=== PATIENT | female | born 1935 | race Caucasian/White ===

== ENCOUNTER 2018-04-15 11:09 | Inpatient (IN) ==
--- NOTE | 2018-04-15 11:45 | Diag Imaging Result Doc PS360 ---
XRAY PELVIS W/HIP 2-3VW RT - 04/15/2018 INDICATION: fall TECHNIQUE: Three views COMPARISON: 08/17/2018 FINDINGS: There is a nondisplaced right femoral neck fracture. The pelvis appears intact. No dislocation. IMPRESSION: Nondisplaced right femoral neck fracture. Electronically signed by Josue Everett 04/15/2018 11:42 AM
[2018-04-15 12:23] LABS: BASO# 0.07 X1000 (0.0-0.2); BASO% 0.1 % (0.0-0.8); EOS# 0.03 X1000 (0.0-0.7); EOS% 0.1 % (0.0-10.0); HEMOGLOBIN 13.1 g/dL (12.0-16.0); IMM GRAN# 0.47 X1000 (0.0-0.04); LYMPH# 1.92 X1000 (1.2-3.4); LYMPH% 4.1 % (20.5-51.1); MCH 29.8 PG (27-31); MCV 93.2 FL (81-99); MONO# 4.56 X1000 (0.11-0.59); MONO% 9.7 % (1.7-9.3); MPV 10.9 FL (7.4-10.4); NEUT# 39.77 X1000 (1.4-6.5); PLT 303 X1000 (130-400); RDW 15.1 % (11.5-14.5); WBC 46.82 X1000 (4.8-10.8)
--- NOTE | 2018-04-15 12:25 | Diag Imaging Result Doc PS360 ---
CHEST-1 VIEW - 04/15/2018 INDICATION: pre-op COMPARISON: 04/21/2017 FINDINGS: There are couple of new nodular densities in the right lung base. These measure up to 8 mm. Otherwise, no infiltrates. Heart size is top normal. No pneumothorax or pleural effusion. IMPRESSION: New indeterminate pulmonary nodules in the right lung base. Follow-up recommended. Electronically signed by Josue Everett 04/15/2018 12:23 PM
[2018-04-15 12:27] LABS: INR 0.96; PROTIME 13.6 Seconds (11.0-16.0); PTT 29.6 Seconds (22.3-41.8)
[2018-04-15 12:36] LABS: AGAP 9; ALB/GLOB RATIO 1.5; ALBUMIN 3.5 g/dL (3.5-5.0); ALKALINE PHOSPHATASE 78 U/L (32-104); BUN 15 mg/dL (8-22); CALCIUM 8.3 mg/dL (8.8-10.2); CHLORIDE 101 mmol/L (98-107); COSMO 277; CREATININE 0.6 mg/dL (0.5-0.9); ESTIMATED GFR > 60; GLUCOSE 142 mg/dL (70-104); GOT 31 U/L (10-30); GPT 23 U/L (10-36); POTASSIUM 3.8 mmol/L (3.5-5.1); SODIUM 137 mmol/L (136-145); TCO2 27 mmol/L (25-35); TOTAL BILIRUBIN 1.03 mg/dL (0.20-1.00); TOTAL PROTEIN 5.9 g/dL (6.3-8.3)
[2018-04-15] MEDS ORDERED: ZOFRAN IV ONE (12:37)
[2018-04-15] MEDS ORDERED: DILAUDID IV ONE (12:37)
[2018-04-15 12:40] LABS: BANDS 1 % (0-1); HYPOCHROM 1+; LYMPHS 2 % (21-51); MONO 7 % (1-9); SEGS 87 % (42-75)
[2018-04-15] MEDS ORDERED: ZOFRAN IV PRN (13:38)
[2018-04-15] MEDS ORDERED: DILAUDID IV PRN (13:40)
--- NOTE | 2018-04-15 13:43 | PROVIDER DOCUMENTATION ---
This chart was entered by Henrietta Crawford Scribe, acting as scribe for Aubrey Anderson MD. HPI-Musculoskeletal Pain/Inj - GENERAL Chief Complaint: Hip Pain Stated Complaint: fall Time Seen by Provider: 04/15/18 11:18 Source: patient, EMS - HX OF PRESENT ILLNESS-MUSKULOSKELTAL Nature of Presenting Problem: 83 y/o female presents to ED with R hip pain onset just prior to arrival. Pt reports she feel on her R hip and hit her head, but did not lose consciousness. Pt states she is also experiencing back pain and nausea. Pt is alert and oriented. Quality of Pain: reports: aching, throbbing Severity in ED: mild Onset/Duration: just prior to arrival Timing: still present Modifying Factors: worse with: movement, palpation Any recent injury?: Yes (fall) Locality of Occurance: Home Similar Symptoms Previously?: No Recently seen or treated by another doctor?: No - FALL INJURY Location of Pain/Injury: reports: lower extremity Pain Radiation: reports: no radiation Reason for Fall: reports: unknown Symptoms prior to fall:: reports: none Loss of Consciousness: no loss of consciousness Injury Associated Symptoms: reports: joint pain (R hip) - HIP/PELVIS PAIN/INJURY Hip Pain Location: reports: hip (R) Pain Radiation: reports: no radiation Context / Method of Injury: reports: fall Associated Symptoms: reports: denies symptoms - LOWER EXTREMITY PAIN/INJURY Lower Extremities Pain: hip: right Context / Method of Injury: reports: fell Associated Symptoms: reports: denies symptoms Review of Systems - Adult - REVIEW OF SYSTEMS - ADULT Constitutional: denies: chills, fever Eyes: reports: no symptoms reported Ears, Nose, Mouth & Throat: reports: no symptoms reported Cardiovascular: denies: chest pain, palpitations Respiratory: denies: cough, shortness of breath Gastrointestinal: reports: nausea. denies: abdominal pain, diarrhea, vomiting Genitourinary: reports: no symptoms reported Musculoskeletal: reports: back pain, joint pain (R hip) Integumentary: reports: no symptoms reported Neurological: denies: dizziness/vertigo, seizure Psychiatric: reports: no symptoms reported Endocrine: reports: no symptoms reported Hematologic/Lymphatic: reports: no symptoms reported Allergic/Immunologic: reports: no symptoms reported All Other Systems: Reviewed and Negative Past History - Adult - PAST MEDICAL HISTORY-ADULT Review of Records: reports: Old Records Reviewed, Nursing Assessment Review, Medications Reviewed Major Childhood Illnesses: reports: denies history Cardiovascular: reports: HTN Respiratory: reports: COPD, cancer Gastrointestinal: reports: GERD, other (hernia) Obstetrical/Gynecological: reports: denies history Genitourinary: reports: denies history, kidney stones Musculoskeletal: reports: other (spinal stenosis; tumor R rib cage) Neurological: reports: denies history, other (scoliosis) Psychiatric: reports: depression Endocrine/Immune: reports: denies history Other Conditions: reports: denies history, cataract/glaucoma - PRIOR SURGERIES/PROCEDURES Surgical/Procedure History: reports: appendectomy, cholecystectomy, BTL, hernia repair, orthopedic (extremity) (trigger thumb), other (cataract removal; ovaries ) - PRIOR HOSPITALIZATIONS Prior Hospitalizations: reports: for other non-related - IMMUNIZATION STATUS Childhood Immunizations: See Nurse Assessment Flu Vaccine: See Nurse Assessment - FAMILY HISTORY Family History: reviewed, not pertinent - SOCIAL HISTORY Smoking: non-smoker Substance Use: none/never Alcohol Use Frequency: never Living Situation: family Physical Exam-Injury Related - Physical Exam-Injury Related Initial Vital Signs Reviewed: Yes General Appearance: appears well, alert, no apparent distress Eyes: PERRL/EOMI, pink conjunctivae Head, Ears, Nose, Mouth & Throat: normocephalic/atraumatic, moist mucous membranes, normal ENT inspection Neck: non-tender, full range of motion Respiratory: chest non-tender, lungs clear, normal breath sounds Cardiovascular: normal peripheral pulses, regular rate, rhythm Abdominal Exam: normal bowel sounds, non tender, soft, hernia Back Exam: normal inspection, no CVA tenderness Extremity: normal range of motion, tenderness (R hip), other (R hip pain with movement). negative: normal gait (states cannot walk) Integumentary: normal color, warm/dry Neurologic: grossly normal Psych/Mental Status: normal mood/affect, normal thought content, normal thought process Progress - PLAN OF CARE/RESULTS Progress/Plan/Lab Results: Vital Signs - 8 hr 04/15/18 11:13 04/15/18 12:51 04/15/18 12:53 Temperature 97.5 F L Pulse Rate 101 H 84 Respiratory Rate 18 19 Blood Pressure 108/88 106/73 O2 Sat by Pulse Oximetry 99 95 97 04/15/18 13:00 04/15/18 13:01 04/15/18 13:10 Temperature Pulse Rate 87 85 84 Respiratory Rate 20 24 20 Blood Pressure 112/68 O2 Sat by Pulse Oximetry 98 97 98 04/15/18 13:20 04/15/18 13:30 Temperature Pulse Rate 89 88 Respiratory Rate 18 12 Blood Pressure O2 Sat by Pulse Oximetry 99 97 Laboratory Results - last 24 hr 04/15/18 04/15/18 04/15/18 12:00 12:00 12:00 WBC 46.82 H RBC 4.40 Hgb 13.1 Hct 41.0 MCV 93.2 MCH 29.8 MCHC 32.0 L RDW Std Deviation 15.1 H Plt Count 303 MPV 10.9 H Immature Gran % (Auto) 1.0 H Neut % (Auto) 85.0 H Lymph % (Auto) 4.1 L Ray % (Auto) 9.7 H Eos % (Auto) 0.1 Baso % (Auto) 0.1 Immature Gran # (Auto) 0.47 H Neut # (Auto) 39.77 H Lymph # (Auto) 1.92 Ray # (Auto) 4.56 H Eos # (Auto) 0.03 Baso # (Auto) 0.07 Segmented Neutrophils 87 H Band Neutrophils 1 Lymphocytes 2 L Monocytes 7 Pathologist Review Atypical Lymphocytes 3.0 Hypochromia 1+ PT 13.6 INR 0.96 PTT (Actin FS) 29.6 Sodium 137 Potassium 3.8 Chloride 101 Carbon Dioxide 27 Anion Gap 9 BUN 15 Creatinine 0.6 Estimated GFR/1.73 m2 > 60 BUN/Creatinine Ratio 25 Glucose 142 H Calculated Osmolality 277 Calcium 8.3 L Total Bilirubin 1.03 H AST 31 H ALT 23 Alkaline Phosphatase 78 Total Protein 5.9 L Albumin 3.5 Globulin 2.4 Albumin/Globulin Ratio 1.5 Orders Category Date Time Status Griffin Cath Insertion ORDERED Care 04/15/18 13:27 Active NPO Diet 04/15/18 13:37 Active CHEST-1 VIEW [RAD] Stat Exams 04/15/18 12:00 Completed XRAY PELVIS W/HIP 2-3VW RT [RAD] Stat Exams 04/15/18 11:19 Completed BLOOD CULTURE [BLDCUL] Stat Lab 04/15/18 13:22 Ordered CBC WITH DIFF [HEME] Stat Lab 04/15/18 12:00 Completed COMPREHENSIVE METABOLIC PANEL [CHEM] Stat Lab 04/15/18 12:00 Completed LACTATE, PLASMA [CHEM] Stat Lab 04/15/18 13:22 Ordered PROTIME WITH INR [COAG] Stat Lab 04/15/18 12:00 Completed PTT [COAG] Stat Lab 04/15/18 12:00 Completed URINALYSIS W/POSS RFLX CULT [URINALYSIS] Stat Lab 04/15/18 13:22 Ordered 0.9% Sodium Chloride Inj [Ns] 1,000 ml Med 04/15/18 13:45 Ordered IV 75 mls/hr Hydromorphone [Dilaudid] Med 04/15/18 12:37 Discontinued 1 mg IV NOW ONE Hydromorphone [Dilaudid] Med 04/15/18 13:40 Ordered 1 mg IV Q3H PRN PRN Ondansetron [Zofran] Med 04/15/18 12:37 Discontinued 4 mg IV NOW ONE Ondansetron [Zofran] Med 04/15/18 13:38 Ordered 4 mg IV Q4H PRN PRN Oxygen Device Stat Oth 04/15/18 11:25 Completed EKG [EKG] Stat Ther 04/15/18 12:00 Ordered Result Diagrams: 04/15/18 12:00 04/15/18 12:00 - REASSESSMENT Reassessment #1 Time Reassessed: 12:35 Status: unchanged (pt stable. appears comfortable at rest, but asking for analgesic. notable wbc ~ 47k, sugg'x leukemoid rxn/myelodysplasia/CML etc. empiric lactate and cultures ordered.) - EKG 1 Time of EKG reading by physician:: 13:15 EKG Read and Signed by:: Aubrey Anderson EKG Interpretation (*Must complete 3 of following elements*): Normal Rate: 83 Rhythm: NSR [place]: normal QRS: normal [place] Interval: normal ST Wave: normal - XRAY 1 XRAY: Right XRAY Study: Pelvis, Hip Impression: Abnormal (FINDINGS: There is a nondisplaced right femoral neck fracture. The pelvis appears intact. No dislocation. IMPRESSION: Nondisplaced right femoral neck fracture. Electronically signed by Josue Everett 04/15/2018 11:42 AM) 2 XRAY Study: Chest Impression: Abnormal (FINDINGS: There are couple of new nodular densities in the right lung base. These measure up to 8 mm. Otherwise, no infiltrates. Heart size is top normal. No pneumothorax or pleural effusion. IMPRESSION: New indeterminate pulmonary nodules in the right lung base. Follow-up recommended. Electronically signed by Josue Everett 04/15/2018 12:23 PM) - CONSULTS/PCP/HOSPITALIST Notification #1 *Consult/PCP/Hospitalist*: Dr. Castañeda Time Discussed: 12:12 Reason/Comments: Nondisplaced right femoral neck fracture. Consult Disposition: Admit (to hospitalist and he will see) #2 Consult: Dr. Lyons for Dr. Mack Time Discussed: 12:17 Reason/Comments: Nondisplaced right femoral neck fracture. Consult Disposition: other (Dr. Lyons states Dr. Mack is taking his own patients this weekend, so he will discuss with Dr. Mack and let us know plan.) Departure - Departure Date of Disposition Decision: 04/15/18 Time of Disposition Decision: 11:52 DIAGNOSIS: Closed right hip fracture Qualifiers: Encounter type: initial encounter Qualified Code(s): S72.001A - Fracture of unspecified part of neck of right femur, initial encounter for closed fracture Disposition: ADMITTED INPATIENT 09 Certified Medical Emergency: Emergent Condition: Stable Additional Freetext Instructions: ED Follow Up Instructions: You have been treated by a care provider in the Emergency Department. These instructions are being provided to you so you can have an understanding of how to care for yourself upon discharge. Upon discharge from the Emergency Department, you are responsible for making arrangements for follow-up care by a physician of your choice. Take all prescribed medications as directed. Return to the Emergency Department immediately for any new or worsening symptoms. You may call the Physician Referral phone number at [phone] to obtain a list of Physicians who are taking new patients. Referrals and Follow-Ups: Jacob Mack Jr, MD [Primary Care Provider] - Discharge Education: Hip Fracture - Critical Care Note This patient required my direct & personal management of CC.: No Attestation - Physician/ SCOTTY Attestation Patient care was provided by Advanced Practice Provider:: No The physician spent face to face time with patient:: Yes Advanced Practice Provider documentation review:: Supervising physician onsite and consulted in the evaluation and care of this patient. The physician did have a face to face encounter with the patient. This chart was documented by the indicated scribe, (Henrietta Crawford, Damián) and accurately reflects the services I performed and decisions made by me, Aubrey Anderson MD, as attested by the provider's signature.
[2018-04-15] MEDS ORDERED: NS 1,000 ML IV SCH (13:45)
[2018-04-15 13:54] LABS: URINE SOURCE CATH
[2018-04-15 14:02] LABS: BILIRUBIN URINE NEGATIVE (NEGATIVE); BLOOD URINE NEGATIVE (NEGATIVE); COLOR YELLOW; GLUCOSE URINE TRACE mg/dL (NEGATIVE); KETONE URINE TRACE mg/dL (NEGATIVE); LEUKOCYTES URINE SMALL (NEGATIVE); NITRITE URINE NEGATIVE (NEGATIVE); PH URINE 6.5; PROTEIN URINE 100 mg/dL (NEGATIVE); SP GRAVITY URINE 1.028; TURBIDITY URINE HAZY (CLEAR); UR EPITHELIAL CELLS >10 /HPF (<10); URINE BACTERIA NEGATIVE /HPF; URINE RBC <10 /HPF (<10); URINE WBC <10 /HPF (<10); UROBILINOGEN URINE 4 mg/dL (NORMAL)
[2018-04-15] MEDS ORDERED: ROCEPHIN 1 GM in NS 50 ML IV SCH (17:30)
[2018-04-15] MEDS: LEVAQUIN 500 MG/D5W 500 MG/100 ML IVPB IV SCH (18:59)
[2018-04-15] MEDS: ZOFRAN IV PRN ×2 (18:59→22:14)
[2018-04-15] MEDS: DILAUDID IV PRN ×2 (18:59→22:14)
[2018-04-15] MEDS: NS 1,000 ML IV SCH (19:02)
[2018-04-16] MEDS: DILAUDID IV PRN ×4 (01:05→21:52)
--- NOTE | 2018-04-16 02:11 | HISTORY AND PHYSICAL ---
CHIEF COMPLAINT: Fall and injury to right hip. PRESENT ILLNESS: This is one of several [facility] admissions for this 83-year-old white female, a patient of Dr. Jacob Mack, who fell this morning and experienced right hip pain. She was brought by ambulance to the emergency room. She was found to have a nondisplaced right hip fracture on x-ray. There is no history of previous fractures. She was supposed to have a bone density test in June, and does have osteopenia. She had no dizziness, and did not stumble, but just fell. She had no hip pain prior to the fall. She is admitted for further evaluation and repair of her hip fracture. Orthopedic consultation was obtained with Dr. Castañeda. PAST MEDICAL HISTORY: Significant for lung cancer and COPD. She uses oxygen at home. Chest x- ray in the emergency room reveals some new nodular densities, 8 mm in the right lower lung, but no infiltrate or effusion. She has had no recent surgery. PRESENT MEDICATIONS: B12 1000 mcg 1 daily, docusate 100 mg daily, duloxetine 60 mg daily, folic acid 1 mg daily, furosemide 20 mg daily, [place] 5/325 q.6 hours p.r.n. pain, lorazepam 0.5 mg t.i.d. p.r.n., and omeprazole 20 mg daily. She also takes Evista 60 mg daily and Zofran 4 mg q.6 hours p.r.n. nausea. ALLERGIES: Several, including doxycycline, oxytetracycline, and penicillin. LABORATORY STUDIES: White blood count was elevated at 46,800. Hemoglobin was 13.1, hematocrit 41.0, with 85% neutrophils and 0.47 immature granulocytes. Plasma lactate was 1.5. Bilirubin was 1.03, and AST 31. Total protein was low at 5.9. SOCIAL HISTORY: Previous smoker, but no alcohol usage. FAMILY HISTORY: Unremarkable. PHYSICAL EXAMINATION: VITAL SIGNS: Temperature 98.4 degrees, heart rate 85, respirations 24, blood pressure 112/68. Oxygen saturation on nasal oxygen 97%. GENERAL: Patient is a well-developed, well-nourished, thin, elderly white female, with moderate right hip pain to palpation and with motion. Pupils equal, round, and reactive to light. Pharynx benign. NECK: Supple, with no mass or lymphadenopathy. HEART: Regular in rate and rhythm, with no murmur, rub, or gallop. LUNGS: Clear, with no rales or rhonchi. ABDOMEN: Soft, with no mass, tenderness, or organomegaly. EXTREMITIES: No cyanosis, clubbing, or edema. RECTAL/GENITALIA: Deferred. IMPRESSION: Nondisplaced right femoral neck fracture, chronic obstructive pulmonary disease, history of lung cancer, new small nodular densities in the right lower lung field, leukocytosis. PLAN: Admit for evaluation and hip repair. cc: Kelechi Lyons MD
[2018-04-16] MEDS: ZOFRAN IV PRN ×3 (02:51→10:19)
--- NOTE | 2018-04-16 05:14 | CONSULTATION ---
DATE OF CONSULTATION: 04/15/2018 CHIEF COMPLAINT: Right hip pain. HISTORY OF PRESENT ILLNESS: Ms Mario, an 83-year-old female, who presented to the emergency department today with complaints of a fall. She was diagnosed with a right hip fracture and admitted per the medicine service. Most of her pain is in the right hip. She says she went to answer the phone and sort of got tripped up. She denies any loss of consciousness. She denies any pain anywhere else. PAST MEDICAL HISTORY: COPD, an abscess in her left thigh. She has a history of lung cancer. She has hypertension. PAST SURGICAL HISTORY: Left thigh I and D per Dr. Arvizu. MEDICATIONS: Per the medical record. ALLERGIES: Pretty extensive. Bentyl, Celexa, codeine sulfate, doxycycline, erythromycin, IV dye, lidocaine, macrolide antibiotics, Novocain, penicillin, sulfa, triamterene, hydrochlorothiazide, cephalosporins. FAMILY HISTORY: Unremarkable. SOCIAL HISTORY: She denies any smoking or alcohol use. REVIEW OF SYSTEMS: Positive for this right hip pain. All other systems are essentially negative. PHYSICAL EXAMINATION: General: A well-developed elderly female who is in no acute distress. Head and Neck: Normocephalic, atraumatic. Respirations: She has nonlabored breathing. Cardiovascular: Regular pulse. Abdomen: Nondistended. Extremities: Right lower extremity exam, she has tenderness to palpation to the right hip. She is neurovascularly intact right lower extremity with 2+ DP pulse and good dorsiflexion and plantar flexion of the ankle and toes. RADIOGRAPHS: Several views of the right hip show a nondisplaced femoral neck fracture. ASSESSMENT: Right nondisplaced femoral neck fracture. PLAN: I discussed with Ms. Mario about closed reduction and percutaneous pinning of this right femoral neck fracture. If we get in there and it does look displaced, we will have to change to a right hip hemiarthroplasty. I discussed that with her as well. I went over with her the procedure, risks, benefits, potential complications. Risks include, but are not limited to, infection, wound healing problems, damage to nerves, arteries, veins, numbness, malunion, nonunion, hardware-related issues, continued pain, DVT, and anesthesia-related risks. After discussing these with the patient, she expressed understanding and wished to proceed. We will plan on doing this in the morning. She will be n.p.o. after midnight tonight. cc: MD Kelechi Aleman MD MTDD
[2018-04-16 06:22] LABS: BASO# 0.03 X1000 (0.0-0.2); BASO% 0.1 % (0.0-0.8); EOS# 0.08 X1000 (0.0-0.7); EOS% 0.2 % (0.0-10.0); HEMATOCRIT 40.3 % (37.0-47.0); HEMOGLOBIN 12.8 g/dL (12.0-16.0); IMM GRAN# 0.18 X1000 (0.0-0.04); IMM GRAN% 0.5 % (0.0-0.5); LYMPH# 3.03 X1000 (1.2-3.4); LYMPH% 9.1 % (20.5-51.1); MCH 30.3 PG (27-31); MCHC 31.8 g/dL (33-37); MCV 95.3 FL (81-99); MONO# 2.24 X1000 (0.11-0.59); MONO% 6.7 % (1.7-9.3); MPV 11.1 FL (7.4-10.4); NEUT% 83.4 % (42.2-75.2); PLT 271 X1000 (130-400); RBC 4.23 XMIL (4.2-5.4); RDW 15.5 % (11.5-14.5); WBC 33.36 X1000 (4.8-10.8)
[2018-04-16 06:53] LABS: AGAP 13; BUN 12 mg/dL (8-22); CALCIUM 7.7 mg/dL (8.8-10.2); CHLORIDE 101 mmol/L (98-107); COSMO 278; CREATININE 0.4 mg/dL (0.5-0.9); ESTIMATED GFR > 60; GLUCOSE 117 mg/dL (70-104); POTASSIUM 3.9 mmol/L (3.5-5.1); SODIUM 139 mmol/L (136-145); TCO2 25 mmol/L (25-35)
[2018-04-16] MEDS ORDERED: DIPRIVAN 1% ONE (07:45)
[2018-04-16] MEDS ORDERED: XYLOCAINE-MPF 2% ONE (07:46)
[2018-04-16] MEDS ORDERED: ZOFRAN ONE (08:10)
[2018-04-16] MEDS ORDERED: KEFZOL 2 GM/D5W 2 GM/50 ML IVPB ONE (08:11)
[2018-04-16] MEDS ORDERED: KETAMINE ONE (08:20)
[2018-04-16] MEDS ORDERED: FENTANYL ONE (08:21)
[2018-04-16] MEDS ORDERED: MORPHINE IV PRN (09:12)
--- NOTE | 2018-04-16 10:24 | PROGRESS NOTE ---
DATE: 04/16/2018 VITAL SIGNS: Stable with temperature of 98.2 degrees, heart rate 87, respirations 16, blood pressure 136/61, O2 saturation on nasal oxygen of 97%. DIAGNOSTIC DATA: EKG reveals sinus rhythm with no ischemic changes. LABORATORY: Hemoglobin 12.8, hematocrit 40.3, white blood count 33,400 with 83% neutrophils. Sodium 139, potassium 3.9, BUN 12, creatinine 0.4, glucose 117, calcium 7.7. ASSESSMENT: She did fairly well last evening except for continued hip pain. PLAN: Right hip repair today, spinal anesthesia possible due to her COPD. Leukocytosis is most likely related to myeloproliferative disorder, but hematology consultation will be obtained after surgery. cc: Kelechi Lyons MD
[2018-04-16] MEDS: OXY IR PO PRN (11:09)
[2018-04-16] MEDS ORDERED: SODIUM CHLORIDE 0.9% INJ PRN (11:10)
--- NOTE | 2018-04-16 11:36 | PROGRESS NOTE ---
DATE: 04/16/2018 SUBJECTIVE: The patient is in recovery now, just had surgery on her right hip and had a pinning closed procedure. She had a spinal for her anesthesia. OBJECTIVE: Vital Signs: Blood pressure is 136/61, respirations 16, pulse is 87 and regular, temperature is 98.2 degrees Fahrenheit. HEENT: She is normocephalic. EOMS intact. PERRLA. Throat clear. Lungs: Clear to auscultation and percussion without rhonchi, rales, or wheezes. Heart: Regular rate and rhythm without murmurs, gallops, friction rubs. Abdomen: Soft. Active bowel sounds. No organomegaly or tenderness. Right now, she is numb from the waist down, just had spinal anesthesia in surgery. Has had a little nausea and has been given something for that. When she came in, her white count was 46,820; now it is down to 33,360. This may just be a response to pain. We will watch this closely. If she continues to stay high, will consider consultation with her oncologist, Dr. Mccurdy. The patient does have a history of lung cancer. Neurological exam: Intact grossly. ASSESSMENT: 1. Right hip fracture. 2. History of osteopenia. 3. Lung cancer and chronic obstructive pulmonary disease. 4. Leukocytosis. PLAN: Continue support. Appreciate help from Orthopedics. cc: MD Kelechi Robbins Jr, MD
[2018-04-16] MEDS: PHENERGAN IV PRN ×2 (12:54→21:51)
[2018-04-16] MEDS: NS 1,000 ML IV SCH (12:55)
--- NOTE | 2018-04-16 14:14 | OPERATIVE NOTE ---
PROCEDURE DATE: 04/16/2018 PREOPERATIVE DIAGNOSIS: Right nondisplaced femoral neck fracture. POSTOPERATIVE DIAGNOSIS: Right nondisplaced femoral neck fracture. PROCEDURE PERFORMED: Right hip closed reduction percutaneous pinning, femoral neck. SURGEON: Stalin Castañeda MD. IRON CARRIER: None. ANESTHESIA: Spinal. ESTIMATED BLOOD LOSS: 30 mL. IMPLANTS: Synthes 7.3 mm cannulated screws x3. DISPOSITION: To PACU hemodynamically stable. INDICATION FOR PROCEDURE: Ms. Mario is an 83-year-old female who fell yesterday, came to the emergency department and was admitted per the Hospitalist service. I discussed with her and her family about operative intervention. They expressed understanding and wished to proceed. DESCRIPTION OF PROCEDURE: Ms. Mario was identified in the preoperative holding area. The right hip was marked as the correct surgical site. She was then wheeled to the operating room and placed supine on the operating table. All bony prominences were well padded. She was induced under spinal anesthesia. She was then moved to the fracture table. She was placed in the traction gaffney but no traction was applied to the hip. Right lower extremity was then prepped with chlorhexidine, gluconate scrub and then ChloraPrep, and draped in normal sterile fashion. Surgical pause was performed. We identified the correct patient, the correct side, and the correct procedure. Preoperative antibiotics were given. We started with fluoroscopy and confirmed that she still had the nondisplaced fracture on both AP and lateral views and everything lined up great. I made a small incision on the lateral aspect of her hip, dissection was carried down through the deep fascia. I then got my guidewires, I put 3 guidewires in, 1 inferior in the neck and then 2 superior 1 superior-anterior and superior-posterior. After I confirmed that those were all in a good position I then measured, drilled and then placed those screws. All the threads crossed the fracture site on all 3 screws, had good stability of our fracture. Guidewires were then removed. Final images were taken which showed we had good position on both AP and lateral views of her reduction and good position of our hardware. I then irrigated everything copiously with normal saline. Zero Vicryl was used to close the deep layer, 2-0 Vicryl for the subcutaneous and maritza on the skin. Adaptic, 4 x 4, and island dressing was applied. She was then wheeled from general anesthesia, moved to her own bed and taken to the PACU in stable condition. Postoperative she will be touchdown weightbearing right lower extremity. Physical therapy to start working with her as well. Materials Assistant will be involved for rehab placement and we will continue to follow. cc: MD Kelechi Aleman MD
[2018-04-16] MEDS: KEFZOL 1 GM/D5W 1 GM/50 ML IVPB IV SCH (18:39)
[2018-04-16] MEDS: LEVAQUIN 500 MG/D5W 500 MG/100 ML IVPB IV SCH (21:00)
[2018-04-17] MEDS ORDERED: VANCOMYCIN IV PER PHARMACY MISC SCH (00:45)
[2018-04-17] MEDS: KEFZOL 1 GM/D5W 1 GM/50 ML IVPB IV SCH ×2 (01:43→09:44)
[2018-04-17] MEDS: OXY IR PO PRN ×2 (01:49→10:10)
[2018-04-17] MEDS ORDERED: VANCOMYCIN 1,300 MG in NS 250 ML IV ONE (02:00)
[2018-04-17 06:12] LABS: BASO# 0.02 X1000 (0.0-0.2); BASO% 0.1 % (0.0-0.8); EOS# 0.03 X1000 (0.0-0.7); EOS% 0.1 % (0.0-10.0); HEMATOCRIT 34.7 % (37.0-47.0); HEMOGLOBIN 11.1 g/dL (12.0-16.0); IMM GRAN# 0.06 X1000 (0.0-0.04); IMM GRAN% 0.3 % (0.0-0.5); LYMPH# 2.37 X1000 (1.2-3.4); LYMPH% 10.6 % (20.5-51.1); MCH 30.2 PG (27-31); MCV 94.6 FL (81-99); MONO# 2.31 X1000 (0.11-0.59); MONO% 10.3 % (1.7-9.3); MPV 11.4 FL (7.4-10.4); NEUT# 17.56 X1000 (1.4-6.5); NEUT% 78.6 % (42.2-75.2); PLT 258 X1000 (130-400); RBC 3.67 XMIL (4.2-5.4); RDW 15.2 % (11.5-14.5); WBC 22.35 X1000 (4.8-10.8)
[2018-04-17] MEDS: NS 1,000 ML IV SCH ×2 (06:56→09:52)
--- NOTE | 2018-04-17 09:09 | PROGRESS NOTE ---
DATE: 04/17/2018 SUBJECTIVE: The patient is feeling better with her hip. She has not had any trouble breathing so far. OBJECTIVE: Vital Signs: Temperature is 99.5 degrees Fahrenheit, pulse 92, respirations 20, blood pressure 140/87. HEENT: She is normocephalic. EOMs intact. PERRLA. Throat clear. Lungs: Clear to auscultation and percussion without rhonchi, rales, or wheezes. Heart: Regular rate and rhythm without murmurs, gallops, or friction rubs. Abdomen: Soft. Active bowel sounds. No organomegaly or tenderness. Extremities: The right hip wound is dry. ASSESSMENT: 1. Right hip fracture, nondisplaced, femoral neck, postoperative day #1. 2. Lung cancer. 3. Chronic obstructive pulmonary disease. PLAN: We will get physical therapy to start working with her. Start incentive spirometry. It should be noted that the patient also had a leukocytosis of 46,000. It is down to 22,000. Blood cultures had been done that appear to be negative. I feel like this was probably due to pain, maybe a little dehydration. This is coming down on its own. We will just continue to watch. cc: MD Kelechi Robbins Jr, MD
--- NOTE | 2018-04-17 10:00 | EKG Report ---
Test Performed on : 04/15/2018 8:21:54 PM Test Reason : pre-op Blood Pressure : / mmHG Vent. Rate : 080 BPM Atrial Rate : 080 BPM P-R Int : 190 ms QRS Dur : 078 ms QT Int : 402 ms P-R-T Axes : 059 020 049 degrees QTc Int : 463 ms Normal sinus rhythm. Indeterminate axis Borderline ECG When compared with ECG of 15-APR-2018 13:12, (Unconfirmed) No significant change was found Confirmed by Pan GARCIA, Niranjan Yung ([id number]) on 04/17/2018 12:40:18 PM
--- NOTE | 2018-04-17 10:03 | EKG Report ---
Test Performed on : 04/15/2018 1:12:42 PM Test Reason : pre-op Blood Pressure : / mmHG Vent. Rate : 083 BPM Atrial Rate : 083 BPM P-R Int : 172 ms QRS Dur : 078 ms QT Int : 404 ms P-R-T Axes : 052 -21 058 degrees QTc Int : 474 ms Normal sinus rhythm. Normal ECG When compared with ECG of 23-APR-2017 10:25, T wave inversion no longer evident in Anterior leads Unconfirmed Result
--- NOTE | 2018-04-17 18:31 | PROGRESS NOTE ---
DATE: 04/17/2018 SUBJECTIVE: Ms. Mario is lying in bed this afternoon. She is feeling better. She is trying to do some straight leg raises, but cannot quite do that just yet. OBJECTIVE: Right Lower Extremity: Dressing is clean, dry and intact. She is neurovascularly intact right lower extremity. There was good sensation to light touch to the toes. ASSESSMENT: Status post right closed reduction and percutaneous pinning of hip. PLAN: Ms. Mario is touchdown weightbearing right lower extremity. She will work with therapy. developmental services worker working on discharge planning. cc: MD Kelechi Aleman MD
[2018-04-17] MEDS: LEVAQUIN 500 MG/D5W 500 MG/100 ML IVPB IV SCH (19:33)
[2018-04-17] MEDS: NORCO-5 PO PRN (22:34)
[2018-04-18] MEDS: NORCO-5 PO PRN ×2 (04:05→22:27)
[2018-04-18 06:09] LABS: BASO# 0.03 X1000 (0.0-0.2); BASO% 0.2 % (0.0-0.8); EOS# 0.12 X1000 (0.0-0.7); EOS% 0.7 % (0.0-10.0); HEMATOCRIT 38.5 % (37.0-47.0); HEMOGLOBIN 12.1 g/dL (12.0-16.0); IMM GRAN# 0.09 X1000 (0.0-0.04); IMM GRAN% 0.5 % (0.0-0.5); LYMPH# 2.35 X1000 (1.2-3.4); LYMPH% 13.7 % (20.5-51.1); MCH 29.9 PG (27-31); MCHC 31.4 g/dL (33-37); MCV 95.1 FL (81-99); MONO# 1.84 X1000 (0.11-0.59); MONO% 10.7 % (1.7-9.3); MPV 11.5 FL (7.4-10.4); NEUT# 12.78 X1000 (1.4-6.5); NEUT% 74.2 % (42.2-75.2); PLT 280 X1000 (130-400); RBC 4.05 XMIL (4.2-5.4); RDW 15.3 % (11.5-14.5); WBC 17.21 X1000 (4.8-10.8)
[2018-04-18 06:37] LABS: AGAP 10; BUN 9 mg/dL (8-22); CALCIUM 7.7 mg/dL (8.8-10.2); CHLORIDE 104 mmol/L (98-107); COSMO 280; CREATININE 0.4 mg/dL (0.5-0.9); ESTIMATED GFR > 60; GLUCOSE 129 mg/dL (70-104); POTASSIUM 3.7 mmol/L (3.5-5.1); SODIUM 140 mmol/L (136-145); TCO2 26 mmol/L (25-35)
--- NOTE | 2018-04-18 08:06 | PROGRESS NOTE ---
DATE: 04/18/2018 SUBJECTIVE: Ms. Mario is lying in bed this morning. Pain is getting better. OBJECTIVE: On right lower extremity exam, the dressing is clean, dry, and intact. She is able to dorsiflex and plantar flex the ankle and foot very well. She has good sensation to light touch to the foot. ASSESSMENT: Status post right hip closed reduction and percutaneous pinning. PLAN: Ms. Mario is touchdown weightbearing to the right lower extremity. She will need to work with therapy, getting out of bed, getting up to a bedside chair, and mobilizing. cargo services coordinator is involved with discharge planning. If she is discharged, then she will need to see me in 2 weeks in the clinic. cc: MD Kelechi Aleman MD
--- NOTE | 2018-04-18 09:21 | PROGRESS NOTE ---
DATE: 04/18/2018 SUBJECTIVE: Patient was nauseated and threw up this morning. She has been real concerned about some family issues that happened even before she fell and broke her hip. She had been doing fairly well with her physical therapy so far. Still has a high white count of around 17,000, but it was 46,000 and we thought this was probably due to her pain. She has had a low-grade fever, however. Initial urinalysis and blood cultures were essentially normal. Initial chest x-ray I showed new intermediate pulmonary nodules in the right lung base. She has a history of lung cancer. These new nodules will have to be followed by her oncologist. OBJECTIVE: Vital Signs: Oxygen saturation 99% on room air. Respirations 18. Blood pressure 108/88. Pulse 101 and regular. Temperature 97.5 degrees Fahrenheit. HEENT: She is normocephalic. EOMS intact. PERRLA. Throat clear. Lungs: Fairly clear to auscultation. Heart: Regular rate and rhythm without murmurs, gallops, friction rubs. Abdomen: Soft. Active bowel sounds. No organomegaly or tenderness. Neurologic: Exam intact grossly. The patient is a little upset about situational things at home. ASSESSMENT: 1. Right hip fracture. 2. History of lung cancer. 3. Chronic obstructive pulmonary disease. 4. New pulmonary nodules. 5. Leukocytosis. PLAN: We will repeat urinalysis and chest x-ray. We will have Oncology take a look at her. cc: MD Kelechi Robbins Jr, MD
--- NOTE | 2018-04-18 09:41 | Diag Imaging Result Doc PS360 ---
CHEST-2 VIEWS - 04/18/2018 INDICATION: lung ca COMPARISON: 04/15/2018 FINDINGS: There is little change in the nodular density in the right lung base. No other infiltrates. Heart size is normal. No pneumothorax or pleural effusion. IMPRESSION: No change from prior. Electronically signed by Josue Everett 04/18/2018 9:38 AM
[2018-04-18] MEDS ORDERED: VANCOMYCIN 1 GM/NS 1 GM/250 ML IVPB IV SCH (14:00)
[2018-04-18 19:12] LABS: URINE SOURCE CLEAN CATCH
[2018-04-18 19:17] LABS: BILIRUBIN URINE NEGATIVE (NEGATIVE); BLOOD URINE TRACE (NEGATIVE); COLOR YELLOW; GLUCOSE URINE NEGATIVE (NEGATIVE); KETONE URINE TRACE mg/dL (NEGATIVE); LEUKOCYTES URINE NEGATIVE (NEGATIVE); NITRITE URINE NEGATIVE (NEGATIVE); PROTEIN URINE NEGATIVE (NEGATIVE); SP GRAVITY URINE 1.006; TURBIDITY URINE HAZY (CLEAR); UROBILINOGEN URINE NORMAL (NORMAL)
[2018-04-18 19:52] LABS: UR EPITHELIAL CELLS <10 /HPF (<10); URINE BACTERIA NEGATIVE /HPF; URINE RBC 20-40 /HPF (<10); URINE WBC <10 /HPF (<10)
[2018-04-18] MEDS: LEVAQUIN 500 MG/D5W 500 MG/100 ML IVPB IV SCH (20:01)
[2018-04-18] MEDS: NS 1,000 ML IV SCH ×2 (20:01)
[2018-04-18 20:07] LABS: URINE CASTS NONE SEEN; URINE CRYSTALS NONE SEEN; URINE SMALL ROUND CELLS NONE SEEN; URINE YEAST NONE SEEN
[2018-04-19] MEDS: DILAUDID IV PRN (01:04)
--- NOTE | 2018-04-19 03:38 | HEMO/ONC CONSULTATION ---
DATE: 04/18/2018 REQUESTING PHYSICIAN: Dr. Jacob Mack. REASON FOR CONSULTATION: Leukocytosis. HISTORY OF PRESENT ILLNESS: This is an 83-year-old female who was admitted with a fall and right hip fracture. She is status post right hip pinning on 04/16/2018. Upon admission she was noted to have no infectious symptoms. No localizing symptoms have been noted so far. She is well known to me for a history of T2 N0 small cell lung cancer, status left upper lobectomy. CT in 01/22 revealed no findings suggestive of malignancy. PAST MEDICAL HISTORY: Lung cancer as described above, COPD on home O2. SOCIAL HISTORY: She lives in [facility]. CURRENT MEDICATIONS: Dilaudid, [place], Levaquin, vancomycin, Phenergan. PHYSICAL EXAMINATION: HEENT: Eyes EOMI, PERRLA. Anicteric. Mucous membranes are moist. Cardiac: Regular rate and rhythm. Normal S1, S2. Chest: Clear to auscultation. Abdomen: Soft, nontender, without hepatosplenomegaly or masses. Extremities: No cyanosis or clubbing. Neurologic: Alert and oriented. No focal deficits. ASSESSMENT: 1. Right hip fracture, status post pinning. 2. T2 N0 small cell lung cancer: most likely cured from this. CXR shows small questionable lung nodule. Will follow up outpatient with CT scan. 3. Leukocytosis: Most likely reactive to hip fracture. Baseline WBC 11-12K outpatient. Trending down. Simply monitor. cc: MD Kelechi Aden MD MTDD
[2018-04-19] MEDS: NS 1,000 ML IV SCH ×3 (03:51→15:59)
[2018-04-19 06:12] LABS: BASO# 0.04 X1000 (0.0-0.2); BASO% 0.3 % (0.0-0.8); EOS# 0.26 X1000 (0.0-0.7); EOS% 1.8 % (0.0-10.0); HEMATOCRIT 39.3 % (37.0-47.0); HEMOGLOBIN 12.4 g/dL (12.0-16.0); IMM GRAN# 0.11 X1000 (0.0-0.04); IMM GRAN% 0.8 % (0.0-0.5); LYMPH# 2.26 X1000 (1.2-3.4); MCHC 31.6 g/dL (33-37); MCV 94.9 FL (81-99); MONO# 1.57 X1000 (0.11-0.59); MONO% 11.1 % (1.7-9.3); MPV 12.3 FL (7.4-10.4); NEUT# 9.85 X1000 (1.4-6.5); PLT 210 X1000 (130-400); RBC 4.14 XMIL (4.2-5.4); RDW 15.2 % (11.5-14.5); WBC 14.09 X1000 (4.8-10.8)
[2018-04-19 06:44] LABS: AGAP 11; BUN 7 mg/dL (8-22); CALCIUM 7.1 mg/dL (8.8-10.2); CHLORIDE 104 mmol/L (98-107); COSMO 278; CREATININE 0.4 mg/dL (0.5-0.9); ESTIMATED GFR > 60; GLUCOSE 106 mg/dL (70-104); POTASSIUM 3.6 mmol/L (3.5-5.1); SODIUM 140 mmol/L (136-145); TCO2 25 mmol/L (25-35)
--- NOTE | 2018-04-19 09:34 | PROGRESS NOTE ---
DATE: 04/19/2018 SUBJECTIVE: The patient is feeling better. I talked with Dr. Mccurdy, her oncologist, and he wants to do a workup for her pulmonary nodules after she gets out of rehab. We feel like her white count is probably reactive, and so I am going to stop her antibiotics. Dr. Mccurdy also tells me that she has had a blood clot in the past, so I am going to place her on Xarelto as a preventive just 10 mg daily. OBJECTIVE: Vital Signs: Blood pressure is 140/58, respirations. 10, pulse 74, temperature 97.6 degrees Fahrenheit. HEENT: She is normocephalic. EOMS intact. PERRLA. Throat clear. Lungs: Sound clear to auscultation and percussion without rhonchi, rales, or wheezes. Heart: Regular rate and rhythm without murmurs, gallops, friction rubs. Abdomen: Soft. Active bowel sounds. No organomegaly or tenderness. She did mention that her right femoral hernia, which has been chronic, is softer now than it has been. I do not think that is a problem; it is not hurting her. Neurological exam: Intact grossly. Right hip fracture seems to be healing. We are working on rehab placement. She had wanted to go to [facility] for rehab, but apparently [facility] found her a different place. If she is not sure she wants to go there, I will have them come talk with her. Again, I do think that she could be discharged tomorrow or the next day, depending on when we can find her a bed. cc: MD Kelechi Robbins Jr, MD
[2018-04-19] MEDS: FOLIC ACID PO SCH ×2 (09:57→22:03)
[2018-04-19] MEDS: NORCO-5 PO PRN ×2 (15:56→22:03)
[2018-04-20] MEDS: NORCO-5 PO PRN (04:57)
[2018-04-20] MEDS: XARELTO PO SCH ×2 (04:58→06:59)
[2018-04-20 06:40] LABS: BASO# 0.05 X1000 (0.0-0.2); BASO% 0.4 % (0.0-0.8); EOS# 0.37 X1000 (0.0-0.7); HEMATOCRIT 40.3 % (37.0-47.0); HEMOGLOBIN 12.9 g/dL (12.0-16.0); IMM GRAN# 0.11 X1000 (0.0-0.04); IMM GRAN% 0.9 % (0.0-0.5); LYMPH# 1.85 X1000 (1.2-3.4); LYMPH% 14.9 % (20.5-51.1); MCH 29.9 PG (27-31); MCV 93.3 FL (81-99); MONO# 1.25 X1000 (0.11-0.59); MPV 11.3 FL (7.4-10.4); NEUT# 8.82 X1000 (1.4-6.5); NEUT% 70.8 % (42.2-75.2); PLT 289 X1000 (130-400); RBC 4.32 XMIL (4.2-5.4); RDW 15.2 % (11.5-14.5); WBC 12.45 X1000 (4.8-10.8)
[2018-04-20 07:24] LABS: AGAP 8; BUN 6 mg/dL (8-22); CALCIUM 8.4 mg/dL (8.8-10.2); CHLORIDE 103 mmol/L (98-107); COSMO 279; CREATININE 0.3 mg/dL (0.5-0.9); ESTIMATED GFR > 60; GLUCOSE 131 mg/dL (70-104); POTASSIUM 3.3 mmol/L (3.5-5.1); SODIUM 140 mmol/L (136-145); TCO2 29 mmol/L (25-35)
[2018-04-20] MEDS ORDERED: DULCOLAX PR ONE (08:43)
[2018-04-20] MEDS: FOLIC ACID PO SCH (08:45)
[2018-04-20] MEDS ORDERED: MIRALAX PO SCH (09:00)
[2018-04-20 11:33] VITALS: BP 142/83
--- NOTE | 2018-04-20 12:37 | DISCHARGE SUMMARY ---
ADMISSION DATE: 04/15/2018 DISCHARGE DATE: 04/20/2018 FINAL DIAGNOSES: 1. Right hip fracture. 2. Leukocytosis. 3. Chronic obstructive pulmonary disease. 4. History of lung cancer. 5. New pulmonary nodules to be followed by Oncology. CONSULTATION: 1. Orthopedics, Dr. Castañeda. 2. Hematology/oncology, Dr. Mccurdy. PRESENT ILLNESS: The patient is an 83 year old, who tripped and fell and had a nondisplaced fracture of her right hip. Had this tended to by Orthopedics. Her white count had gone up to 46,800, but has come down to 12,000. We feel like this was reactive in nature, but she was initially placed on antibiotics. Blood cultures and urine cultures were negative. The patient has had a history of blood clots. So, we will place her back on Xarelto 10 mg daily. PHYSICAL EXAMINATION: Vital Signs: Blood pressure is 139/70, respirations 14, pulse 77, temperature 97.7 degrees Fahrenheit. HEENT: She is normocephalic. EOMS intact. PERRLA. Throat clear. Lungs: Fairly clear to auscultation and percussion without rhonchi, rales, or wheezes. Heart: Regular rate and rhythm without murmurs, gallops, friction rubs. Abdomen: Soft. Active bowel sounds. No organomegaly or tenderness. Neurological exam: Intact grossly. PLAN: We will send to rehab with her home medicines plus she will need something for pain, and her potassium was just slightly low this morning at 3.3. She generally takes Lasix and has not had trouble with her potassium previously, but I will put her on a little potassium supplementation and recheck this when she comes back to the office with a chemistry profile and a CBC. Also, check her leukocytosis. Will also get 1 check on this at rehab. Please see medication list. I appreciate the help from Hematology, Dr. Mccurdy, and Orthopedics, Dr. Castañeda. cc: MD Kelechi Robbins Jr, MD
== END 2018-04-20 14:06 | DRG 482 ==
LOC: SUPCPDRO → ED 11:09 → 4N 14:29
PROVIDERS: ADMIT Family Medicine; ATTEND Emergency Medicine
CPT/HCPCS: 71010; 71020; 71045; 71046; 73502; 76000; 80048; 80053; 81001; 83605; 85025; 85610; 85730; 87040; 87088; 93005; 93010; 94761; 94799; 96374; 96375; 97110; 97162; 97530; 99285; A9270; J0690; J1170; J1956; J2270; J2405; J2550; J3010; J3370; J7030; J7040

== ENCOUNTER 2018-06-06 17:21 | Inpatient (IN) ==
--- NOTE | 2018-06-07 09:21 | PROGRESS NOTE ---
DATE: 06/07/2018 SUBJECTIVE: The patient says she feels fairly well. She has been discharged from regular hospital admission and placed on hospice with comfort care measures. OBJECTIVE: Vital Signs: Temperature 97.8 degrees Fahrenheit, pulse 79, respirations 16, blood pressure 113/50. Oxygen saturation is 100% on room air. HEENT: She is normocephalic. EOMS intact. PERRLA. Throat clear. Lungs: Clear to auscultation and percussion without rhonchi, rales, or wheezes. Heart: Regular rate and rhythm without murmurs, gallops, friction rubs. Abdomen: Soft with mild lower quadrant tenderness. ASSESSMENT: The patient had previously been admitted for bowel obstruction with incarcerated right femoral hernia. She developed pneumonia. She developed a UTI. She had Clostridium difficile infection with diarrhea. Some of these continue to improve. She developed some mild ascites and possible peritonitis, but she has not really shown peritoneal signs right now. She continued to have high white count and poor nutrition. The patient then decided that she did not want anything else done and has been changed over to hospice. PLAN: Continue to give comfort care. cc: Jacob Mack Jr, MD
[2018-06-07] MEDS: ZOFRAN IV PRN (14:55)
[2018-06-07] MEDS: DILAUDID IV PRN (15:27)
[2018-06-07] MEDS: ATIVAN IV PRN (15:27)
--- NOTE | 2018-06-08 09:39 | PROGRESS NOTE ---
DATE: 06/08/2018 The patient is on hospice. SUBJECTIVE: She says that she is feeling fairly well. She is not eating anything to speak of. She got a little Jell-O and a Coke down yesterday, and that was all. She still has a little lower abdominal pain that has not worsened any. We are not checking any lab work at this time. OBJECTIVE: Vital Signs: Blood pressure 115/60, respirations 16, pulse 96, temperature 97.9 degrees. HEENT: She is normocephalic. EOMS intact. PERRLA. Throat clear. Lungs: Clear to auscultation and percussion without rhonchi, rales, or wheezes. Heart: Regular rate and rhythm without murmurs, gallops, friction rubs. Abdomen: Soft with lower quadrant tenderness that is mild. Neurological: Intact grossly. She is more alert today. ASSESSMENT: 1. Abdominal pain. 2. Status post bowel obstruction and postoperative for incarcerated right femoral hernia. 3. Previous pneumonia. 4. Previous ileus. 5. Leukocytosis. 6. Nutritional problems. PLAN: Continue comfort care. cc: Jacob Mack Jr, MD
[2018-06-08] MEDS: ATIVAN IV PRN ×3 (11:02→23:28)
[2018-06-08] MEDS: DILAUDID IV PRN ×5 (11:02→23:28)
[2018-06-08] MEDS: ZOFRAN IV PRN (14:11)
[2018-06-09] MEDS: DILAUDID IV PRN ×6 (03:14→23:14)
[2018-06-09] MEDS: ATIVAN IV PRN ×3 (03:15→20:54)
[2018-06-09] MEDS: TRANSDERM-SCOP TD SCH (10:44)
--- NOTE | 2018-06-09 13:44 | PROGRESS NOTE ---
DATE: 06/09/2018 SUBJECTIVE: The patient is barely responsive. She will wake up a little bit but really will not answer questions. She has been less responsive over the last several hours. She had some gurgling and we put a scopolamine patch on trying to make her comfortable. OBJECTIVE: Vital Signs: Temperature is 97.7 degrees Fahrenheit, blood pressure 112/43, respirations 15, pulse 75 and regular, oxygen saturation is 93% with 3 L per nasal cannula. HEENT: She is normocephalic. Lungs: At this time sound fairly clear to auscultation but I understand earlier nurses report that she had some gurgling. Heart: Regular rate and rhythm without murmurs, gallops, friction rubs. Abdomen: Soft. Active bowel sounds. No organomegaly or tenderness. The patient falls off to sleep very quickly. When I arose her she will open her eyes and grunt just a little bit and then fall back to sleep. ASSESSMENT: Patient in for comfort care with hospice. Had a bowel obstruction and surgery for an incarcerated right femoral hernia then got pneumonia, had a leukocytosis during all this time and urinary tract infection. The patient finally decided she did not want further treatment but just wanted comfort care. PLAN: Continue to give her comfort care. cc: Jacob Mack Jr, MD
[2018-06-09] MEDS: ZOFRAN IV PRN (20:54)
[2018-06-10] MEDS: DILAUDID IV PRN ×9 (03:15→23:13)
[2018-06-10] MEDS: ATIVAN IV PRN ×5 (03:16→20:55)
--- NOTE | 2018-06-10 10:16 | PROGRESS NOTE ---
DATE: 06/10/2018 SUBJECTIVE: The patient is barely arousable. She is not communicative at all at this time. She is on comfort care measures only. She is not eating or drinking. OBJECTIVE: Vital Signs: Blood pressure 121/69, respirations 12, pulse is again tachycardic at 117 but regular, temperature 98.1 degrees Fahrenheit. HEENT: She is normocephalic. EOMS intact. PERRLA. Throat clear. Lungs: Sound clear to auscultation and percussion without rhonchi, rales, or wheezes. Heart: Regular rate and rhythm to sinus tachycardia without murmurs, gallops, friction rubs. Abdomen: Soft. Active bowel sounds. No megaly or tenderness. Neurological exam: The patient is lethargic. PLAN: Continue comfort measures. cc: Jacob Mack Jr, MD
[2018-06-10] MEDS ORDERED: ATROPINE 1 % OPHTH SOLN SL PRN (22:36)
[2018-06-10] MEDS: OFIRMEV 1000 MG/ISOTONIC SOLN 1,000 MG/100 ML BOTTLE IV PRN (23:13)
[2018-06-11] MEDS: DILAUDID IV PRN ×4 (06:52→20:04)
[2018-06-11] MEDS: ATIVAN IV PRN ×4 (06:52→20:04)
--- NOTE | 2018-06-11 11:30 | PROGRESS NOTE ---
DATE: 06/11/2018 SUBJECTIVE: Patient is not responsive at this time. Earlier she seemed to be in more pain and had to be given more pain medication. She was flailing her arms some according to her sister who was in the room and we discussed this. She does have pain medicine ordered. OBJECTIVE: Vitals: No vital signs on the chart. At this time, she did have 101.2 degree temperature yesterday at 7:44 p.m. HEENT: She is normocephalic. She is sleeping at this time. Not responsive. Lungs: Clear to auscultation and percussion without rhonchi, rales, or wheezes. Heart: Regular rate and rhythm without murmurs, gallops, friction rubs. Abdomen: Soft. Active bowel sounds. Does not seem to be any pain at this time and has no tenderness. Neurological: Exam was nonresponsive at this time. ASSESSMENT: End-stage of life. Now on comfort measures. cc: Jacob Mack Jr, MD
[2018-06-12] MEDS: DILAUDID IV PRN ×3 (03:09→20:12)
--- NOTE | 2018-06-12 09:23 | PROGRESS NOTE ---
DATE: 06/12/2018 SUBJECTIVE: The patient is unresponsive. Family says only when her pain medicine starts to wear off a little bit, that she starts moving around and starts groaning a little bit, and then she is given pain medication and she goes back off to sleep. At this time she is not responsive. OBJECTIVE: Vitals: Blood pressure is 142/62, respirations 19, pulse 111 and regular, temperature 100.2 degrees. HEENT: She is normocephalic. Extraocular movements intact. PERRLA. Throat clear. Lungs: Have scattered rales and rhonchi. Heart: Regular rate and rhythm to sinus tachycardia without murmurs, gallops, friction rubs. Abdomen: Soft. Active bowel sounds. No organomegaly or tenderness. Neurological: The patient is unresponsive. ASSESSMENT: The patient is on hospice and comfort measures only. I suspect she has developed a pneumonia. She has had a lot of secretions and now running fever. PLAN: We will continue to support and control pain. cc: Jacob Mack Jr, MD
[2018-06-12] MEDS: ATIVAN IV PRN ×2 (09:43→20:13)
[2018-06-12] MEDS: OFIRMEV 1000 MG/ISOTONIC SOLN 1,000 MG/100 ML BOTTLE IV PRN (09:48)
[2018-06-12] MEDS: TRANSDERM-SCOP TD SCH (11:00)
[2018-06-13] MEDS: DILAUDID IV PRN ×2 (02:08→05:45)
[2018-06-13] MEDS: ATIVAN IV PRN ×2 (02:08→05:44)
[2018-06-13 07:06] VITALS: BP 118/68
--- NOTE | 2018-06-13 09:36 | DISCHARGE SUMMARY ---
DATE: 06/13/2018 The patient was admitted on 06/06/2018 after regular hospitalization for multiple problems. Was then placed on hospice. on 06/13/2018 around 7:30 a.m. I do not have the exact time. The nurses pronounced her. We will try to get that time. PRESENT ILLNESS: The patient had been admitted initially to the hospital for a bowel obstruction and an incarcerated right femoral hernia. She developed pneumonia which had gotten better and had resolved. She developed an ileus. She had severe leukocytosis, with multiple consultants including pulmonology, infectious disease, and GI. She had ascites and possible peritonitis. We had treated her with antibiotics during that hospitalization and she just did not seem to get better. She finally stated that she did want any more care and wanted to be moved to hospice. She was moved to hospice and stayed here in the hospital under hospice care instead and started running fever while she was in the hospital. At this time, we were not doing any lab work but I had noticed that she had more and more secretions from her lungs, had rales and rhonchi in her lungs. I felt like she was getting her pneumonia back. She was pronounced earlier this morning by the nurses. Most likely cause of her demise was pneumonia but she also had very poor nutrition and had multiple other problems. She had been in the hospital prior to these 2 admissions for a fractured right hip and had been at rehab when she was brought back to the hospital with incarcerated right femoral hernia and the bowel obstruction. I did get to talk with her 2 sisters but she had already been pronounced by the time I came to the hospital and found out that she had . cc: Jacob Mack Jr, MD
== END 2018-06-13 07:30 | disposition expired | DRG 194 ==
LOC: 3N 18:15
PROVIDERS: ADMIT Emergency Medicine; ATTEND Emergency Medicine
CPT/HCPCS: 94761; A9270; J0131; J1170; J2060; J2405